=== PATIENT | male | born 1940 | race Caucasian/White ===

== ENCOUNTER → 2016-08-12 | Outpatient (CLI) | payer MEDICARE, BC, OTHER ==
--- NOTE | 2016-08-15 10:10 | SLEEPCENT ---
DATE OF PROCEDURE: 08/12/2016 REFERRING PHYSICIAN: Dr. Cha Garcia INTERPRETATION: Nocturnal polysomnography was performed for re-titration of pressure therapy in the patient with obstructive sleep apnea syndrome. For testing a Respironics ComfortGel nasal mask of petite size was used, 12 cm of water pressure was applied to the circuit and the lights were extinguished. 8 hours and 7 minutes of data were reviewed. There were 354 minutes of sleep identified. Sleep latency was normal at 28 minutes. Rapid eye movement (REM) latency was prolonged at 213 minutes. Sleep architecture improved with optimal pressure therapy. There were two REM periods appreciated. Overall sleep efficiency was 74.6%. EKG showed sinus rhythm with an average heart rate of 58 beats per minute. EEG showed reasonably normal wave forms for awake and sleep. Multiple CPAP pressures were attempted. For a period of time, the patient was placed on a bilevel device, however, central venous persisted. Best sleep was seen on a CPAP pressure of +15. There was, however, significant limb activity throughout much of the study, near continuous early, less frequent late in the study but limb movement arousal index was elevated at 11. 7. IMPRESSION: 1. Obstructive sleep apnea syndrome (G47.33). 2. 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 Limb movements arousal index 11.7. RECOMMENDATION: Nightly use of pressure therapy at 15 cm of water should be sufficient to address the patient's respiratory events. Intervention to reduce the frequency of arousal from limb activity should offer better and more efficiency sleep.
== END ==
LOC: M SLEEP 19:45
PROVIDERS: ATTEND Nurse Practitioner Adult Health
DX: G47.33 Obstructive sleep apnea (adult) (pediatric) (principal)

== ENCOUNTER → 2018-04-03 | Outpatient (REF) | payer MEDICARE, OTHER ==
[2018-04-03 13:30] LABS: PERCENT SATURATION 17.2 % (19.7-50.0)
== END ==
LOC: M LAB REF 12:31
PROVIDERS: ATTEND Internal Medicine
DX: K62.5 Hemorrhage of anus and rectum (principal)

== ENCOUNTER 2018-06-18 08:46 | Day surgery (SDC) | payer MEDICARE, BC, OTHER ==
[~2018-06-18] VITALS: Ht 170.2 cm; Wt 97.5 kg
[~2018-06-18 08:46] MED LIST: ALLE60TA69 PO; FINA5TAB2 PO; FISH1000 PO; GLUC1CAP10 PO; LIDOCAINE 2% INJ 100 MG/5 ML SDV (FOR ANES.) As Ordered ONE; LOSA25TA14 PO; NS 1,000 ML IV ONE; PROPOFOL 200 MG/20 ML VIAL As Ordered ONE; SERT50TA PO; VITA100066 PO; VITA400D PO
--- NOTE | 2018-06-18 10:26 | ROOR ---
Patient Name: Kishor Marin Procedure Date: 06/18/2018 9:33 AM Date of : 1940 Age: 78 Room: [facility] Gender: Male Note Status: Finalized Procedure: Upper GI endoscopy Indications: Iron deficiency anemia, Recent gastrointestinal bleeding Providers: Mario Alberto Zamora MD Referring MD: Cha Garcia DO Requesting Provider: Medicines: Monitored Anesthesia Care Complications: No immediate complications. Procedure: Pre-Anesthesia Assessment: - Prior to the procedure, a History and Physical was performed, and patient medications and allergies were reviewed. The patient is competent. The risks and benefits of the procedure and the sedation options and risks were discussed with the patient. All questions were answered and informed consent was obtained. Patient identification and proposed procedure were verified by the physician, the nurse and the anesthesiologist in the procedure room. Mental Status Examination: alert and oriented. CV Examination: regular rate and rhythm. Prophylactic Antibiotics: The patient does not require prophylactic antibiotics. Prior Anticoagulants: The patient has taken no previous anticoagulant or antiplatelet agents. ASA Grade Assessment: II - A patient with mild systemic disease. After reviewing the risks and benefits, the patient was deemed in satisfactory condition to undergo the procedure. The anesthesia plan was to use monitored anesthesia care (MAC). Immediately prior to administration of medications, the patient was re-assessed for adequacy to receive sedatives. The heart rate, respiratory rate, oxygen saturations, blood pressure, adequacy of pulmonary ventilation, and response to care were monitored throughout the procedure. The physical status of the patient was re-assessed after the procedure. The Endoscope was introduced through the mouth, and advanced to the second part of duodenum. The upper GI endoscopy was accomplished without difficulty. The patient tolerated the procedure well. Findings: The examined esophagus was normal. A small hiatal hernia was present. The entire examined stomach was normal. The first portion of the duodenum and second portion of the duodenum were normal. Impression: - Normal esophagus. - Small hiatal hernia. - Normal stomach. - Normal first portion of the duodenum and second portion of the duodenum. - No specimens collected. Recommendation: - Discharge patient to home. - Resume previous diet. - Continue present medications. Mario Alberto Zamora MD Mario Alberto Zamora MD 06/18/2018 10:25:57 AM Electronically signed by Mario Alberto Zamora MD Number of Addenda: 0 Note Initiated On: 06/18/2018 9:33 AM Estimated Blood Loss: Estimated blood loss: none.
[2018-06-18 10:53] VITALS: BP 157/79
--- NOTE | 2018-06-18 11:28 | ROOR ---
Patient Name: Kishor Marin Procedure Date: 06/18/2018 9:34 AM Date of : 1940 Age: 78 Room: [facility] Gender: Male Note Status: Finalized Procedure: Colonoscopy Indications: Last colonoscopy: December 2015, Rectal bleeding, Acute post hemorrhagic anemia Providers: Mario Alberto Zamora MD Referring MD: Cha Garcia DO Requesting Provider: Medicines: Monitored Anesthesia Care Complications: No immediate complications. Procedure: Pre-Anesthesia Assessment: - Prior to the procedure, a History and Physical was performed, and patient medications and allergies were reviewed. The patient is competent. The risks and benefits of the procedure and the sedation options and risks were discussed with the patient. All questions were answered and informed consent was obtained. Patient identification and proposed procedure were verified by the physician, the nurse and the anesthesiologist in the procedure room. Mental Status Examination: alert and oriented. CV Examination: regular rate and rhythm. Prophylactic Antibiotics: The patient does not require prophylactic antibiotics. Prior Anticoagulants: The patient has taken no previous anticoagulant or antiplatelet agents. ASA Grade Assessment: II - A patient with mild systemic disease. After reviewing the risks and benefits, the patient was deemed in satisfactory condition to undergo the procedure. The anesthesia plan was to use monitored anesthesia care (MAC). Immediately prior to administration of medications, the patient was re-assessed for adequacy to receive sedatives. The heart rate, respiratory rate, oxygen saturations, blood pressure, adequacy of pulmonary ventilation, and response to care were monitored throughout the procedure. The physical status of the patient was re-assessed after the procedure. The Colonoscope was introduced through the anus and advanced to the cecum, identified by appendiceal orifice and ileocecal valve. The colonoscopy was performed without difficulty. The patient tolerated the procedure well. The quality of the bowel preparation was excellent. Findings: The perianal and digital rectal examinations were normal. Multiple medium-mouthed diverticula were found in the sigmoid colon. The exam was otherwise without abnormality. Impression: - Diverticulosis in the sigmoid colon. - The examination was otherwise normal. - No specimens collected. Recommendation: - Discharge patient to home. - Resume previous diet. - Continue present medications. Mario Alberto Zamora MD Mario Alberto Zamora MD 06/18/2018 11:27:39 AM Electronically signed by Mario Alberto Zamora MD Number of Addenda: 0 Note Initiated On: 06/18/2018 9:34 AM Estimated Blood Loss: Estimated blood loss: none.
== END 2018-06-18 11:31 | disposition home or self-care (01) ==
LOC: M OPP 08:46
PROVIDERS: ATTEND Surgery
DX: K57.30 Diverticulosis of large intestine without perforation or abscess without bleeding (principal); K62.5 Hemorrhage of anus and rectum; D62 Acute posthemorrhagic anemia; K44.9 Diaphragmatic hernia without obstruction or gangrene; D50.9 Iron deficiency anemia, unspecified; G47.30 Sleep apnea, unspecified; Z79.899 Other long term (current) drug therapy; Z88.8 Allergy status to other drugs, medicaments and biological substances; J30.2 Other seasonal allergic rhinitis; Z87.891 Personal history of nicotine dependence

== ENCOUNTER → 2018-07-17 | Outpatient (CLI) | payer MEDICARE, BC, OTHER ==
[~2018-07-17] MED LIST changes: -LIDOCAINE 2% INJ 100 MG/5 ML SDV (FOR ANES.) As Ordered ONE; -NS 1,000 ML IV ONE; -PROPOFOL 200 MG/20 ML VIAL As Ordered ONE; +SERT-141 PO; -SERT50TA PO
== END ==
LOC: M LAB 14:45
PROVIDERS: ATTEND Urology
DX: R97.20 Elevated prostate specific antigen [PSA] (principal)
CPT/HCPCS: 36415; G0103

== ENCOUNTER → 2019-01-21 | Outpatient (CLI) | payer MEDICARE, BC, OTHER | LOC: M LAB 08:25 | PROVIDERS: ATTEND Chiropractor Rehabilitation | DX: N40.1 Benign prostatic hyperplasia with lower urinary tract symptoms (principal) ==

== ENCOUNTER → 2019-07-07 | Outpatient (CLI) | payer MEDICARE, BC, OTHER | LOC: M LAB 11:13 | PROVIDERS: ATTEND Urology | DX: R97.20 Elevated prostate specific antigen [PSA] (principal) ==

== ENCOUNTER → 2020-07-07 | Outpatient (CLI) | payer MEDICARE, BC, OTHER | LOC: M LAB 09:59 | PROVIDERS: ATTEND Nurse Practitioner Women's Health | DX: Z12.5 Encounter for screening for malignant neoplasm of prostate (principal) | CPT/HCPCS: 36415; G0103 ==

== ENCOUNTER → 2021-07-12 | Outpatient (CLI) | payer MEDICARE, BC, OTHER ==
[~2021-07-12] MED LIST changes: +LOSA25TA13 PO; -LOSA25TA14 PO
== END ==
LOC: M LAB 09:20
PROVIDERS: ATTEND Nurse Practitioner Women's Health
DX: Z12.5 Encounter for screening for malignant neoplasm of prostate (principal)
CPT/HCPCS: 36415; G0103

== ENCOUNTER → 2021-10-03 | Outpatient (CLI) | payer MEDICARE, BC, OTHER | LOC: M WUC 15:34 | PROVIDERS: ATTEND Internal Medicine | DX: M43.16 Spondylolisthesis, lumbar region (principal); M54.50 Low back pain, unspecified; R20.2 Paresthesia of skin ==

== ENCOUNTER → 2021-12-23 | Outpatient (CLI) | payer MEDICARE, BC, OTHER | LOC: M PLALAB 12:26 | PROVIDERS: ATTEND Nurse Practitioner Women's Health | DX: Z12.5 Encounter for screening for malignant neoplasm of prostate (principal) | CPT/HCPCS: 36415; G0103 ==